=== PATIENT | female | born 1985 | race Caucasian/White ===

== ENCOUNTER 2017-03-06 06:00 | Inpatient (IN) ==
[2017-03-06] MEDS ORDERED: CALCIUM CARBONATE Chewable 500mg TABLET PO PRN ×2 (06:18→15:25)
[2017-03-06] MEDS ORDERED: ACETAMINOPHEN 500 MG TABLET PO PRN ×2 (06:18→15:25)
[2017-03-06] MEDS ORDERED: METHYLERGONOVINE 0.2 MG/ML INJECTION IM PRN (06:18)
[2017-03-06] MEDS ORDERED: MAG-AL + SIM ORAL LIQUID 30ml PO PRN ×2 (06:18→15:25)
[2017-03-06] MEDS ORDERED: LIDOCAINE 1% (10mg/ml) 2mL INJ PF SDV ID PRN (06:18)
[2017-03-06] MEDS ORDERED: CARBOPROST 250 MCG/ML INJECTION IM PRN (06:18)
[2017-03-06] MEDS ORDERED: LR 1,000 ML IV PRN (06:18)
[2017-03-06] MEDS ORDERED: D5LR 1,000 ML IV PRN (06:20)
[2017-03-06] MEDS ORDERED: OXYTOCIN DRIP 30 UNIT/500 ML ML IV PRN (06:20)
[2017-03-06] MEDS ORDERED: AMPICILLIN 2 GM in NS 100 ML IV ONE (07:15)
[2017-03-06 07:45] VITALS: BMI 30.1
[2017-03-06] MEDS ORDERED: AMPICILLIN 1 GM in NS 100 ML IV SCH (10:45)
[2017-03-06] MEDS ORDERED: DiphenhydrAMINE 25 MG CAPSULE PO PRN (15:25)
[2017-03-06] MEDS ORDERED: HYDROCODONE/APAP 5mg/325mg TABLET PO PRN (15:25)
[2017-03-06] MEDS ORDERED: SALINE FLUSH 10ml SYRINGE IVF PRN (15:25)
[2017-03-06] MEDS ORDERED: HYDROCORTISONE 2.5% CREAM 30gm RECTALLY PRN (15:25)
[2017-03-06] MEDS ORDERED: OXYTOCIN DRIP 30 UNIT/500 ML ML IV SCH (15:30)
--- NOTE | 2017-03-06 15:55 | Labor and Delivery Note ---
DATE 03/06/2017 Ms. Guadalupe progressed very well in first stage of labor. She began to push with excellent effort at the complete and +3 presentation. head delivered in the OA presentation. She was bulb suctioned on the perineum. With a further push, baby delivered in total. Baby was then further bulb suctioned and placed on mother's abdomen for care. After about 2-1/2 minutes, the cord was doubly clamped and cut by the baby's father, Omero. We had noticed a true knot in the cord immediately upon delivery, however this did not restrict flow of blood. We were careful to watch this. After a few moments, the placenta delivered spontaneously intact. It had a normal configuration and normal-appearing three-vessel cord with a true knot. The patient had a first- degree midline laceration that was superficial and hemostatic; it was therefore not repaired. Total blood loss was approximately 300 mL. At the time of this dictation, mother and baby are doing well. CONSTANZA
[2017-03-06] MEDS: IBUPROFEN 800 MG TABLET PO SCH ×2 (16:37→23:51)
[2017-03-07] MEDS: IBUPROFEN 800 MG TABLET PO SCH ×3 (08:10→23:40)
[2017-03-07] MEDS: DOCUSATE CALCIUM 240 MG CAPSULE PO SCH (08:10)
[2017-03-07] MEDS: FERROUS SULFATE 324 MG TABLET PO SCH (09:22)
--- NOTE | 2017-03-07 10:55 | Progress Note ---
OB PP Progress Note Free Text - Date Date: 03/07/17 - Progress Note Progress Note: vss af no c/o doing well cont current care anticipate dc tomorrow d/t gbs. q&a-krb
[2017-03-08] MEDS: IBUPROFEN 800 MG TABLET PO SCH (07:49)
[2017-03-08] MEDS: DOCUSATE CALCIUM 240 MG CAPSULE PO SCH (07:50)
[2017-03-08] MEDS: FERROUS SULFATE 324 MG TABLET PO SCH (07:50)
[2017-03-08 08:05] VITALS: BP 129/81; PULSE 70; RESP 18; TEMP 97.9; O2SAT 97
--- NOTE | 2017-03-08 11:02 | OB/GYN Progress Note ---
OB-Progress Note Free Text - Date Date: 03/08/17 - Progress Note Progress Note: vss af no c/o desires dc instructions reviewed q&a f/u 5-6wks
--- NOTE | 2017-03-08 11:05 | Discharge Instructions ---
Discharge Plan - Med Rec/Dispo Referrals/Follow Up: Radha Clark MD [Physician] - 5-6 Weeks Prescriptions: New Ibuprofen [Motrin] 800 mg PO Q8H tablet Continue Vit 108/Iron/Folic AC [ One Tablet] 1 each PO DAILY
[2017-03-09] MEDS ORDERED: PRENATAL VITAMIN TABLET PO SCH (09:00)
== END 2017-03-08 14:10 | disposition home or self-care (01) | DRG 775 ==
LOC: MC 06:09
PROVIDERS: ADMIT Obstetrics & Gynecology; ATTEND Obstetrics & Gynecology